=== PATIENT | male | born 1985 | race Caucasian/White ===

== ENCOUNTER 2017-04-11 22:08 | Emergency (ER) | payer BC ==
[2017-04-11 22:31] VITALS: BP 141/74
--- NOTE | 2017-04-11 22:57 | EDM.PDOC ---
ED HPI GENERAL MEDICAL PROBLEM - General Chief Complaint: Eye Problems Stated Complaint: EYE PROBLEMS Time Seen by Provider: 04/11/17 22:57 Source of Information: Reports: Patient History Limitations: Reports: No Limitations - History of Present Illness INITIAL COMMENTS - FREE TEXT/NARRATIVE: 32-year-old male attends the ED with severe right eye pain severe photophobia with excessive tearing over the last 24-36 hours. No history of getting anything into his eye. However he is a contact lens wearer. Is not appreciated purulent discharge from the right eye just tears. States the eyes very painful and hard to keep open. Getting worse over the last 12 hours. He has tried to cleanse it. Took his contact lens out yesterday. Did not appreciate that there was any rent or tear of the contact lens itself. Patient has a history of multiple allergies to outside pollens particularly this time of year. 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 He doesn't believe he was exposed to a cat or animal danders. Also the left eye is normal. Onset Date: 04/10/17 Onset Time: 21:00 Duration: Hour(s):, Getting Worse Location: Reports: Face Quality: Reports: Burning, Sharp, Stabbing, Other Severity: Severe (Eyes extremely photophobic. He can hardly open it.) Improves with: Reports: None Worsens with: Reports: Other Context: Denies: Activity (Light stimulation.), Exercise, Lifting, Sick Contact , Trauma, Other Associated Symptoms: Reports: No Other Symptoms Treatments [employer]: Reports: NSAIDS (Motrin with no relief.) right eye Pain Score (Numeric/FACES): 7 - Related Data Allergies Allergy/AdvReac Type Severity Reaction Status Date / Time grass pollen Allergy Cough Verified 04/11/17 22:31 pet dander Allergy Facial Uncoded 04/11/17 22:31 Swelling Home Meds: Home Meds . [No Known Home Meds] 04/11/17 [History] Past Medical History - Past Health History Medical/Surgical History: Denies Medical/Surgical History Social & Family History - Family History Family Medical History: Noncontributory - Tobacco Use Smoking Status *Q: Current Every Day Smoker Years of Tobacco use: 17 Packs/Tins Daily: 0.5 - Caffeine Use Caffeine Use: Reports: Coffee, Energy Drinks - Recreational Drug Use Recreational Drug Use: No - Living Situation & Occupation Living situation: Reports: Occupation: Employed ED ROS GENERAL - Review of Systems Review Of Systems: See Below Constitutional: Denies: Fever, Chills, Malaise, Weakness, Fatigue HEENT: Reports: Contact Lenses, Eye Discharge, Eye Pain (Mostly tears. No purulent discharge), Glasses ( severe right eye pain particularly to exposure to light. does use glasses when not using contacts.). Denies: Dental Pain, Ear Discharge, Ear Pain Respiratory: Reports: No Symptoms Cardiovascular: Reports: No Symptoms, Palpitations GI/Abdominal: Reports: No Symptoms : Reports: No Symptoms Musculoskeletal: Reports: No Symptoms Skin: Reports: No Symptoms Neurological: Reports: No Symptoms Psychiatric: Reports: No Symptoms Hematologic/Lymphatic: Reports: No Symptoms ED EXAM GENERAL W FULL EYE - Physical Exam Exam: See Below Exam Limited By: Physical Impairment (Can keep all his right eye open due to severe pain.) General Appearance: Alert, WD/WN, Moderate Distress Eye Exam: Right Eye: Corneal Abrasion Eyelids: Right: Normal Appearance, Lid Everted for Exam (No foreign bodies identified. Just erythema of the upper and lower eyelids appreciated on the blepharal components) Conjunctiva & Sclera: Right: Injected (Mild on the right side.) Cornea Exam: Right: Corneal Abrasion (Lengthy linear abrasion from 2:00 to 6 o' clock position. Slight rent at the 3 o'clock position from fingernail trying to remove the contact lens on my assessment.) Extraocular Movements: Bilateral: Intact Pupillary Size: Bilateral: 5 mm Pupillary Reaction: Bilateral: Brisk (However shining a light in the left eye caused him to have severe pain in his right eye. The suggested ciliary body inflammation.) Nose: Normal Inspection, Normal Mucosa, Other Throat/Mouth: Normal Inspection, Normal Lips, Normal Teeth, Normal Oropharynx ( Mild rhinitis from excessive tearing.) Course - Vital Signs Last Recorded V/S: Last Vital Signs Temp 36.2 C 04/11/17 22:21 Pulse 79 04/12/17 00:10 Resp 18 04/12/17 00:10 BP 141/74 H 04/11/17 22:21 Pulse Ox 97 04/12/17 00:10 - Orders/Labs/Meds Meds: Medications Discontinued Medications Generic Name Dose Route Start Last Admin Trade Name Freq PRN Reason Stop Dose Admin Ciprofloxacin 2.5 ml 04/12/17 23:41 Ciloxan 0.3% Ophth Soln EYERT 04/12/17 23:42 ONETIME ONE Ciprofloxacin 2.5 ml 04/11/17 23:41 04/12/17 00:10 Ciloxan 0.3% Ophth Soln EYERT 04/11/17 23:42 2 drop ONETIME ONE Administration Ketorolac Tromethamine 2.5 ml 04/12/17 23:42 Acular 0.5% Ophth Soln EYERT 04/12/17 23:43 ONETIME ONE Ketorolac Tromethamine 2.5 ml 04/11/17 23:42 04/12/17 00:08 Acular 0.5% Ophth Soln EYERT 04/11/17 23:43 1 drop ONETIME ONE Administration - Radiology Interpretation Free Text/Narrative:: 32-year-old male presents the ED with a severe right eye pain syndrome going on for over 24 hours. Excessively sensitive to light and an initial assessment cannot open the right eye due to severe pain. He was examined in a darkened room. Even with multiple drops of proparacaine it did not seem initially to relieve his pain. His excessive tearing washed away a good deal of the local anesthetic. Once I allowed him to rest for 10-15 minutes after per cane application he was then able to open his eyes so that I could happily visualize it. There was no foreign bodies up under the lid. The conjunctiva was mildly injected. Utilized the slit lamp and identified a large linear corneal abrasion from 2:00 to 6 o'clock position with a slight deeper rent at the 3 o'clock position. Peers this is from removal of a contact lens. Treated with ketorolac eyedrops 2 drops every 6 hours as needed for pain relief. Cipro ophthalmic drops 2 drops every 8 hours for 3 days to prevent secondary infection. Double eye patch overnight. Advised to take at least 24 hours for this to heal. He can return to his contact lens use after finishing up his eyedrops. He'll return to the ED or ophthalmic care if not markedly improved in 36 hours time. Departure - Departure Time of Disposition: 23:43 Disposition: Home, Self-Care 01 Condition: Fair Clinical Impression: Corneal abrasion, right Qualifiers: Encounter type: initial encounter Qualified Code(s): S05.01XA - Injury of conjunctiva and corneal abrasion without foreign body, right eye, initial encounter - Discharge Information Instructions: Corneal Abrasion, [id number] Referrals: PCP,None [Primary Care Provider] - Forms: ED Department Discharge Additional Instructions: Evaluation in the emergency room today in regards to severe right eye pain with severe photosensitivity and persistent tearing. Symptoms started yesterday and have worsened as the day has gone on. History of contact lens wear. Examination was somewhat difficult due to the severe sensitivity of the eye to light. After prolonged dosage of proparacaine this provided satisfactory anesthesia for examination. No foreign bodies were identified up under the eyelid or in the eye itself. No corneal injection or infection is evident. Slit-lamp exam reveals a large linear corneal abrasion traveling from the 2 o'clock position to the 6 o'clock position on the mid cornea. This is causing the severe eye pain and sensitivity to light. Treatment is to use ketorolac eyedrops 2 drops every 6 hours as necessary to relieve pain. Cipro antibiotics 2 drops to right eye every 8 hours or 3 times daily for the next 3 days to prevent secondary infection. Suggest double eye patch on the eye for the next 24 hours until the corneal abrasion has healed. After this the eye may be somewhat sensitive to light and you may require sunglasses but within 48 hours the eye should return to complete normality. If not return to medical care.
[2017-04-11] MEDS ORDERED: Ciprofloxacin 0.3% Ophth Soln 2.5 ML Bottle EYERT ONE (23:41)
[2017-04-11] MEDS ORDERED: Ketorolac 0.5% Ophth Soln 5 ML Bottle EYERT ONE (23:42)
[2017-04-12] MEDS ORDERED: Ciprofloxacin 0.3% Ophth Soln 2.5 ML Bottle EYERT ONE (23:41)
[2017-04-12] MEDS ORDERED: Ketorolac 0.5% Ophth Soln 5 ML Bottle EYERT ONE (23:42)
== END 2017-04-12 00:10 | disposition home or self-care (01) ==
LOC: JD.ED 22:08
DX: S05.01XA Injury of conjunctiva and corneal abrasion without foreign body, right eye, initial encounter (principal); F17.210 Nicotine dependence, cigarettes, uncomplicated; Z91.018 Allergy to other foods; Z91.048 Other nonmedicinal substance allergy status; X58.XXXA Exposure to other specified factors, initial encounter
CPT/HCPCS: 99283; A9270